=== PATIENT | female | born 1985 ===

== ENCOUNTER 2018-01-10 12:29 | Emergency (ER) | payer MEDICAID, OTHER ==
[2018-01-10 12:29] VITALS: BMI 40.4
[2018-01-10 12:43] VITALS: BP 135/71; PULSE 97; TEMP 98
[2018-01-10 13:55] VITALS: RESP 19; O2SAT 98
[2018-01-10] MEDS ORDERED: Albuterol 0.083% Inhal Sol (2.5 mg/3 mL) UD INH STA (14:49)
--- NOTE | 2018-01-10 14:50 | ED PDOC ---
HPI: General Adult Time Seen by Provider: 01/10/18 14:10 Chief Complaint (Nursing): Flu-like Symptoms Chief Complaint (Provider): cough, SOB History Per: Patient Additional Complaint(s): 32-year-old female currently 5 weeks presents to emergency department with cough, sore throat, fever, congestion and body aches that started yesterday. Patient denies abdominal pain or vaginal bleeding. She dates her cough is dry. No nausea or vomiting. PMD: none Past Medical History Reviewed: Historical Data, Nursing Documentation, Vital Signs Vital Signs: Last Vital Signs Temp 98 F 01/10/18 12:33 Pulse 97 H 01/10/18 12:33 Resp 19 01/10/18 13:54 BP 135/71 01/10/18 12:33 Pulse Ox 98 01/10/18 14:50 - Medical History PMH: No Chronic Diseases - Family History Family History: States: No Known Family Hx - Living Arrangements Living Arrangements: With Family - Social History Current smoker - smoking cessation education provided: No Alcohol: None Drugs: Denies - Immunization History Hx Influenza Vaccination: Yes ('last year') - Home Medications Home Medications: Ambulatory Orders Medication Instructions Recorded Albuterol HFA [Ventolin HFA 90 1 puff IH [id number] #60 puff 04/06/16 mcg/actuation (8 g)] Ibuprofen [Motrin] 600 mg PO TID #21 tab 04/06/16 Spacer, Inhalation [Aerochamber] 1 inh IH QID #1 dev 04/06/16 predniSONE [Prednisone] 20 mg PO BID #10 tab 04/06/16 Albuterol HFA [Ventolin HFA 90 1 puff IH ASDIR #1 unit 01/10/18 mcg/actuation (8 g)] Oseltamivir Phosphate [Tamiflu] 75 mg PO BID #10 capsule 01/10/18 - Allergies Allergies/Adverse Reactions: Allergies Allergy/AdvReac Type Severity Reaction Status Date / Time No Known Allergies Allergy Verified 04/06/16 11:27 Review of Systems ROS Statement: Except As Marked, All Systems Reviewed And Found Negative Constitutional: Positive for: Fever, Chills ENT: Positive for: Throat Pain Respiratory: Positive for: Cough Gastrointestinal: Negative for: Vomiting, Abdominal Pain Genitourinary Female: Negative for: Vaginal Bleeding Neurological: Positive for: Headache Physical Exam - Reviewed Nursing Documentation Reviewed: Yes Vital Signs Reviewed: Yes - Physical Exam Appears: Positive for: Well, Non-toxic, No Acute Distress Skin: Negative for: Rash Eye Exam: Positive for: Normal appearance ENT: Positive for: Nasal Congestion, Pharyngeal Erythema, Tonsillar Swelling. Negative for: Tonsillar Exudate Cardiovascular/Chest: Positive for: Regular Rate, Rhythm Respiratory: Positive for: Normal Breath Sounds. Negative for: Wheezing, Respiratory Distress Gastrointestinal/Abdominal: Positive for: Soft. Negative for: Tenderness - Laboratory Results Urine POC: Positive - ECG O2 Sat by Pulse Oximetry: 98 Pulse Ox Interpretation: Normal Medical Decision Making Medical Decision Makin32 year old with flu like symptoms Plan: Flu swab PO tylenol Rapid strep Albuterol x 1 Flu a is positive. Prescriptions given for Tamiflu and albuterol inhaler. Advised Tylenol every 4-6 hours for pain, fluids and rest. Patient was instructed to follow up with primary doctor or clinic in 2-3 days and is aware she can return to emergency department any time if acutely worse. Disposition - Clinical Impression Clinical Impression: Influenza - Patient ED Disposition Is Patient to be Admitted: No Counseled Patient/Family Regarding: Studies Performed, Diagnosis, Need For Followup, Rx Given - Disposition [facility]errals: [facility] [Outside] Disposition: Routine/Home Disposition Time: 15:50 Condition: STABLE Additional Instructions: Take prescription medications as directed. Take [id number] Tylenol every 4 -6 hours for fever and body aches. Drink plenty of fluids and get plenty of rest. Follow-up with primary doctor or with women's clinic in 1-2 days. Return any time if acutely worse. Prescriptions: Albuterol HFA [Ventolin HFA 90 mcg/actuation (8 g)] 1 puff IH ASDIR #1 unit Oseltamivir Phosphate [Tamiflu] 75 mg PO BID #10 capsule Instructions: Influenza (ED) Forms: [employer] ([place])
[2018-01-10] MEDS ORDERED: Albuterol 0.083% Inhal Sol (2.5 mg/3 mL) UD ONE (15:05)
== END 2018-01-10 16:13 | disposition home or self-care (01) ==
LOC: H.ER 12:29
DX: J11.1 Influenza due to unidentified influenza virus with other respiratory manifestations (principal); Z33.1 Pregnant state, incidental